=== PATIENT | female | born 2000 | race African-American/Black ===

== ENCOUNTER 2021-04-24 11:35 | Emergency (ER) | payer MEDICAID ==
[~2021-04-24] VITALS: Ht 160 cm; Wt 69.0 kg
[2021-04-24] MEDS ORDERED: ONDANSETRON HCL 4MG/2ML INJ IV STA (12:22)
[2021-04-24] MEDS ORDERED: MORPHINE SULFATE 4 MG/ML CPJ (NOT FOR IM USE) IV STA (12:22)
[2021-04-24] MEDS ORDERED: SODIUM CHLORIDE 0.9% 1,000 ML IV ONE (12:30)
[2021-04-24 12:43] LABS: BASOPHILS % 0.5 % (0.0-2.0); EOSINOPHILS % 1.1 % (0.0-5.0); HEMATOCRIT. 38.6 % (36.0-48.0); HEMOGLOBIN. 12.3 g/dL (12.0-16.0); LYMPHOCYTES % 28.9 % (20.0-50.0); MEAN CORPUSCULAR HEMOGLOBIN 24.8 pg (28.0-32.0); MEAN CORPUSCULAR VOLUME 77.8 fL (81.0-99.0); MEAN PLATELET VOLUME 9.1 fl (7.4-10.4); MONOCYTES % 5.6 % (2.0-8.0); NEUTROPHILS % 63.9 % (40.0-76.0); PLATELET 195 x1000/uL (130-400); RED BLOOD CELL COUNT 4.96 mill/uL (4.2-5.4); RED CELL DISTRIBUTION WIDTH 15.3 % (11.6-14.6)
[2021-04-24 12:50] LABS: CHLORIDE 109 mEq/L (98-107)
[2021-04-24 12:58] LABS: HCG SCREEN NEGATIVE
[2021-04-24 13:08] LABS: CLARITY URINE CLEAR (CLEAR); COLOR URINE YELLOW (YELLOW); KETONES URINE NEGATIVE (NEGATIVE); LEUKOCYTE ESTERASE URINE NEGATIVE (NEGATIVE); NITRITE URINE NEGATIVE (NEGATIVE); OCCULT BLOOD URINE NEGATIVE (NEGATIVE); PH URINE 5.5 (4.5-8.0); PROTEIN URINE NEGATIVE (NEGATIVE); SPECIFIC GRAVITY URINE 1.014 (1.005-1.030); UROBILINOGEN URINE 0.2 E.U./dL (0.2-1.0)
[2021-04-24] MEDS ORDERED: POLY17PO3 MT (15:21)
[2021-04-24] MEDS ORDERED: PHEN51CR24 TP (15:21)
[2021-04-24] MEDS ORDERED: IBUP-2028 MT (15:21)
[2021-04-24 15:25] VITALS: BP 104/56
[2021-04-24] MEDS ORDERED: KETOROLAC 30MG/ML VIAL IV ONE (15:30)
[2021-04-24] MEDS ORDERED: VISCOUS LIDOCAINE 2% 15 ML UDC MM PRN (15:30)
== END 2021-04-24 15:59 | disposition home or self-care (01) ==
LOC: ER 11:35
DX: K64.4 Residual hemorrhoidal skin tags (principal); Z88.0 Allergy status to penicillin
CPT/HCPCS: 36415; 74176; 80053; 81003; 81025; 82248; 82270; 83690; 84703; 85025; 93005; 96361; 96374; 96375; 99285; J2270; J2405; J7030; 80076